=== PATIENT | female | born 1940 | race Caucasian/White ===

== ENCOUNTER 2018-06-28 10:10 | Emergency (ER) | payer BC ==
[2018-06-28 10:21] VITALS: O2SAT 99
[2018-06-28 10:22] VITALS: BMI 22.6
[2018-06-28] MEDS ORDERED: Oxycodone/Acetaminophen 5/325 mg Tab PO STA (10:57)
[2018-06-28] MEDS ORDERED: Oxycodone/Acetaminophen 5/325 mg Tab ONE (11:18)
[2018-06-28 11:37] LABS: BASO # 0.1 K/uL (0.0-0.2); BASO % 1.1 % (0.0-2.0); EOS # 0.1 K/uL (0.0-0.7); EOS % 0.7 % (0.0-4.0); HEMOGLOBIN 13.9 g/dL (12.0-16.0); LYMPH # 1.6 K/uL (1.0-4.3); LYMPH % 18.8 % (20.0-40.0); MEAN CELL VOLUME 89.3 fl (81.0-99.0); MEAN CORPUSCULAR HEMOGLOBIN 29.8 pg (27.0-31.0); MEAN CORPUSCULAR HGB CONC 33.3 g/dL (33.0-37.0); MEAN PLATELET VOLUME 8.6 fl (7.2-11.7); MONO # 0.6 K/uL (0.0-0.8); MONO % 7.4 % (0.0-10.0); NEUT # 6.2 K/uL (1.8-7.0); NRBC % 0.1 % (0.0-0.0); RBC 4.67 Mil/uL (3.80-5.20); RED CELL DISTRIBUTION WIDTH 12.6 % (11.5-14.5); WHITE BLOOD COUNT 8.6 K/uL (4.8-10.8)
--- NOTE | 2018-06-28 11:54 | ED PDOC ---
HPI: General Adult Time Seen by Provider: 06/28/18 10:30 Chief Complaint (Nursing): Abnormal Skin Integrity Chief Complaint (Provider): Abnormal Skin Integrity History Per: Patient History/Exam Limitations: no limitations Onset/Duration Of Symptoms: Days (x 1 week ) Current Symptoms Are (Timing): Still Present Additional Complaint(s): 77 year old female presents to the ED with a small cyst in between butt cheeks, towards anus, that she noticed 1 week ago. Patient reports it was initially painless, until it popped a few days ago. It began to drain liquid and cause her pain. Visited a doctor who gave her doxycycline which she has been taking since. The drainage continues and the liquid ranges from clear to greenish. Denies a history of similar symptoms. PMD: not provided Past Medical History Reviewed: Historical Data, Nursing Documentation, Vital Signs Vital Signs: Last Vital Signs Temp 97.9 F 06/28/18 10:20 Pulse 62 06/28/18 10:20 Resp BP 154/65 H 06/28/18 10:20 Pulse Ox 99 06/28/18 10:20 - Medical History PMH: No Chronic Diseases - Surgical History Surgical History: No Surg Hx - Family History Family History: States: Unknown Family Hx - Allergies Allergies/Adverse Reactions: Allergies Allergy/AdvReac Type Severity Reaction Status Date / Time No Known Allergies Allergy Verified 06/28/18 10:25 Review of Systems ROS Statement: Except As Marked, All Systems Reviewed And Found Negative Skin: Positive for: Other (cyst between butt cheeks) Physical Exam - Reviewed Nursing Documentation Reviewed: Yes Vital Signs Reviewed: Yes - Physical Exam Appears: Positive for: Non-toxic, No Acute Distress Head Exam: Positive for: ATRAUMATIC, NORMAL INSPECTION, NORMOCEPHALIC Skin: Positive for: Normal Color, Warm, Dry Eye Exam: Positive for: EOMI, Normal appearance, PERRL Neck: Positive for: Normal, Painless ROM Cardiovascular/Chest: Positive for: Regular Rate, Rhythm. Negative for: Murmur Respiratory: Positive for: Normal Breath Sounds. Negative for: Respiratory Distress Gastrointestinal/Abdominal: Positive for: Normal Exam, Soft. Negative for: Tenderness Rectal: Positive for: Rectal Tone Is: (good), Hemorrhoids (non thrombosed hemorrhoid in right lateral portion; no bleeding), Other (opening posterior to anus, about 3/4 cm open. Unclear if tracking is involved. Granulation tissues seen in posterior most portion) Extremity: Positive for: Normal ROM. Negative for: Deformity Neurologic/Psych: Positive for: Alert, Oriented. Negative for: Motor/Sensory Deficits - Laboratory Results Result Diagrams: 06/28/18 11:30 06/28/18 11:30 - ECG O2 Sat by Pulse Oximetry: 99 (RA) Pulse Ox Interpretation: Normal Medical Decision Making Medical Decision Makin:57 MDM: Determine if abscess vs fistula Basic labs; rule out infectious process CT Pelvis Surgical consult in place Darlyn QUEEN was oim architect for rectal. 1600 Pt seen and evaluated by surgery service. CT scan shows no abscess or fistula. Pt to continue taking Doxycycline for one week. Sitz bath instructions and colace prescription provided. Pt to follow up surgery clinic in one week. Return parameters discussed. Scribe Attestation: Documented by Melody Wakefield acting as a scribe for Ashly Roque MD Provider Scribe Attestation: All medical record entries made by the Scribe were at my direction and personally dictated by me. I have reviewed the chart and agree that the record accurately reflects my personal performance of the history, physical exam, medical decision making, and the department course for this patient. I have also personally directed, reviewed, and agree with the discharge instructions and disposition. Disposition - Clinical Impression Clinical Impression: Abscess - Disposition Referrals: Tosin Vallejo MD [Staff Provider] - Disposition: Routine/Home Disposition Time: 16:02 Condition: IMPROVED Additional Instructions: Continue to take Doxycycline. Use sitz bath every 4 to 6 hours. Take Colace daily and drink Prune Juice to prevent constipation. Follow up in the surgery clinic in one week and call to schedule the appointment. Follow up with primary doctor regarding uncontrolled blood sugar. Forms: [employer] (Irish)
[2018-06-28 12:12] LABS: BLOOD UREA NITROGEN 15 mg/dl (7-17); CALCIUM 9.4 mg/dL (8.4-10.2); GFR NON-AFRICAN AMERICAN > 60
[2018-06-28] MEDS ORDERED: Iohexol 300 100 ML IJ ONE (12:19)
[2018-06-28] MEDS ORDERED: Gadodiamide 287 MG/ML VIAL (15ML) IV ONE (12:19)
[2018-06-28] MEDS ORDERED: Sodium Chloride 0.9% 50 ML IV ONE (12:20)
--- NOTE | 2018-06-28 13:29 | CT ---
Date of service: 06/28/2018 PROCEDURE: CT pelvis HISTORY: possible abscess/fistula COMPARISON: Not available TECHNIQUE: 2.5 mm contiguous axial sections were acquired through the pelvis, through the perineum. The examination was performed following intravenous contrast administration. Sagittal and coronal images were reformatted from the axial scan. Contrast administered: 95 mL Omnipaque 300 Total exam DLP: 220.75 mGy-cm This CT exam was performed using 1 or more of the following dose reduction techniques: Automated exposure control, adjustment of the mA and/or kV according to patient size, and/or use of iterative reconstruction technique. FINDINGS: There is a well-circumscribed collection of fluid and gas with an enhancing periphery, seen in the medial upper left thigh below the level of the anal rectal complex. This measures approximately 0.8 x 1.9 x 2.7 cm. This is consistent with an abscess. There is adjacent cutaneous thickening with minimal stranding of the subcutaneous fat, consistent with focal cellulitis. No other abscess is identified. There is no evidence of perianal abscess. There diverticulosis of the sigmoid colon without evidence of diverticulitis. No other abnormal bowel loops are appreciated in the pelvis. No masses or fluid collections are seen. The urinary bladder is unremarkable. The uterus is normal in appearance. There is a small umbilical hernia containing only mesenteric fat. There is no pelvic lymphadenopathy. There is no evidence of ascites. There is grade 2 anterolisthesis at the L5-S1 intervertebral disc space level, without associated spondylolysis. IMPRESSION: Abscess in the medial upper left thigh caudal to the level of the anal rectal complex, measuring 2.7 cm in greatest dimension. There is adjacent focal cellulitis. Sigmoid diverticulosis without evidence of diverticulitis. No additional abnormality is identified.
--- NOTE | 2018-06-28 13:29 | CP.PCM.CON ---
History of Present Illness - History of Present Illness History of Present Illness: Surgery Consult: Dr. Vallejo CC: joseph-rectal pain Reason for consult: possible rectal fistula HPI: Patient is a 77F with pmhx of DM, diet controlled, and joseph-rectal abscess drained 2x as a child presents complaining of 1week joseph-rectal pain and constipation. She states the pain is mainly location on her left joseph-rectal area. She reports progressive pain over the past week until yesterday when the pain become severe. She noticed redness and swelling to the area however later in the day the "abscess" ruptured and purulent fluid drained. Symptoms improved significantly after the area started to drain. She states she was seen in an urgent clinic on 06/25 and given Doxycycline abx for 1 week however the rx is already completed. She takes prune juice normally to prevent constipation however has not helped this past week due to the pain. She denies bloody or black stools. She states her last colonoscopy was over 10 years ago, and was normal. She has not had a follow up. PMH: DM diet controlled, joseph-rectal abscess PSH: tonsillectomy Social: denies ETOH, tobacco, or drug use PMD: Dr. Lanza, who is retired. She sees urgent care now. Review of Systems - Review of Systems All systems: reviewed and no additional remarkable complaints except Review of Systems: unless stated in HPI Past Patient History - Past Social History Smoking Status: Never Smoked - ENDOCRINE/METABOLIC Hx Diabetes Mellitus Type 2: Yes - INTEGUMENTARY Other/Comment: Abscess - PSYCHIATRIC Hx Substance Use: No - SURGICAL HISTORY Hx Surgeries: Yes - ANESTHESIA Hx Anesthesia: No Meds Allergies/Adverse Reactions: Allergies Allergy/AdvReac Type Severity Reaction Status Date / Time No Known Allergies Allergy Verified 06/28/18 10:25 Physical Exam - Constitutional Appears: Well, Non-toxic, No Acute Distress - Head Exam Head Exam: ATRAUMATIC, NORMOCEPHALIC - Eye Exam Eye Exam: EOMI, Normal appearance - ENT Exam ENT Exam: Mucous Membranes Moist - Respiratory Exam Respiratory Exam: NORMAL BREATHING PATTERN. absent: Respiratory Distress - Cardiovascular Exam Cardiovascular Exam: REGULAR RHYTHM. absent: Tachycardia - GI/Abdominal Exam GI & Abdominal Exam: Soft. absent: Hernia, Rigid, Tenderness - Rectal Exam Rectal Exam: Hemorrhoids. absent: Fecal Impaction Additional comments: left joseph-rectal cellulitis with opening, unsure if fistula purulent drainage minimal coming from wound good rectal tone no obvious fistula felt on exam no pain on exam external hemorrrhoid/skin tag - Extremities Exam Extremities exam: Positive for: normal inspection. Negative for: calf tenderness - Neurological Exam Neurological exam: Alert, Oriented x3 - Psychiatric Exam Psychiatric exam: Normal Affect, Normal Mood Results - Vital Signs Recent Vital Signs: Last Vital Signs Temp 97.9 F 06/28/18 10:20 Pulse 62 06/28/18 10:20 Resp BP 154/65 H 06/28/18 10:20 Pulse Ox 99 06/28/18 12:25 - Labs Result Diagrams: 06/28/18 11:30 06/28/18 11:30 Labs: Laboratory Results - last 24 hr 06/28/18 06/28/18 11:30 11:30 WBC 8.6 RBC 4.67 Hgb 13.9 Hct 41.7 MCV 89.3 MCH 29.8 MCHC 33.3 RDW 12.6 Plt Count 315 MPV 8.6 Neut % (Auto) 72.0 Lymph % (Auto) 18.8 L [place] % (Auto) 7.4 Eos % (Auto) 0.7 Baso % (Auto) 1.1 Neut # (Auto) 6.2 Lymph # (Auto) 1.6 [place] # (Auto) 0.6 Eos # (Auto) 0.1 Baso # (Auto) 0.1 Sodium 133 Potassium 4.8 Chloride 97 L Carbon Dioxide 25 Anion Gap 16 BUN 15 Creatinine 0.5 L Est GFR ( Amer) > 60 Est GFR (Non-Af Amer) > 60 Random Glucose 437 H* Calcium 9.4 - Impressions Impression: CT reviewed w/ Dr. Vallejo area of cellulitis on the L joseph-rectal gluteal area with pocket of air no abscess or fluid collection to drain Assessment & Plan - Assessment and Plan (Free Text) Assessment: 77 y/o female w/ joseph-rectal abscess, spontaneously drained, possible underlying fistula Plan: -cont abx for 1 week -Sitz baths BID -keep area clean and dry -avoid constipation: prune juice, colace, mirilax etc to assist with normal daily bowel movements -if symptoms persist can f/u in surgery clinic for surgical evaluation for possible EUA and fistulotomy -d/w Dr. Vallejo AKWhite PGY4
[2018-06-28] MEDS ORDERED: Sodium Chloride 0.9% 1,000 ML IV STA (13:41)
[2018-06-28] MEDS ORDERED: Insulin Regular 100 units/ml SC STA (13:41)
[2018-06-28] MEDS ORDERED: Insulin Regular 100 units/ml ONE (16:08)
[2018-06-28 16:35] VITALS: BP 138/72; PULSE 68; RESP 15; TEMP 98.3
== END 2018-06-28 16:35 | disposition home or self-care (01) ==
LOC: H.ER 10:10
DX: K61.1 Rectal abscess (principal); K64.8 Other hemorrhoids; E11.9 Type 2 diabetes mellitus without complications; K57.30 Diverticulosis of large intestine without perforation or abscess without bleeding
CPT/HCPCS: 72193; 80048; 82948; 85025; 96372; 99284; J7030; Q9967